=== PATIENT | female | born 1965 | race Caucasian/White ===

== ENCOUNTER 2016-12-30 11:24 | Emergency (ER) | payer OTHER, MEDICAID ==
[~2016-12-30] VITALS: Ht 167.6 cm; Wt 149.7 kg
[2016-12-30] MEDS ORDERED: SODIUM CHLORIDE 0.9% 500 ML IVB ONE (12:17)
[2016-12-30 14:27] LABS: Basophils # (auto) 0.1 uL; Basophils % (auto) 0.9 % (0.0-2.0); Eosinophils # (auto) 0.3 uL; Eosinophils % (auto) 4.9 % (0.0-7.0); Hematocrit 40.2 % (36.0-46.0); Hemoglobin 12.9 g/dL (12.2-16.2); Lymphocytes # (auto) 1.9 uL; Lymphocytes % (auto) 26.6 % (10.0-50.0); Mean Corpuscular Hemoglobin 27.1 pg (28.0-32.0); Mean Corpuscular Hgb Conc. 32.2 g/dL (32.0-36.0); Mean Corpuscular Volume 84.2 fL (80.0-100.0); Mean Platelet Volume 8.9 fL (7.4-10.4); Monocytes # (auto) 0.6 uL; Neutrophils # (auto) 4.1 uL; Neutrophils % (auto) 58.6 % (37.0-80.0); Platelet Count (auto) 283 10^3/uL (140-450); Red Cell Distribution Width 16.1 % (11.6-16.0)
[2016-12-30 14:45] VITALS: BP 135/75
[2016-12-30 14:53] LABS: Albumin 3.5 g/dL (3.4-5.0); Alkaline Phosphatase 113 U/L (45-117); Anion Gap 7 (5-15); Aspartate Aminotransferase 27 U/L (15-37); BUN/Creatinine Ratio 23.3; Bilirubin, Total 0.2 mg/dL (0.2-1.0); Blood Urea Nitrogen 20 mg/dL (7-18); Calcium 8.7 mg/dL (8.5-10.1); Carbon Dioxide 31 mmol/L (21-32); Chloride 105 mmol/L (98-107); GFR African American 89 mL/min; GFR Non-African American 74 mL/min; Glucose 106 mg/dL (74-106); Potassium 5.1 mmol/L (3.5-5.1); Sodium 143 mmol/L (136-145); Total Protein 6.9 g/dL (6.4-8.2)
[2016-12-30 16:13] LABS: Urine Bilirubin Negative (Negative); Urine Blood Negative /uL (Negative); Urine Color Yellow (Yellow); Urine Glucose Normal (Normal); Urine Ketone Negative (Negative); Urine Nitrite Negative (Negative); Urine RBC <1 /hpf (0 - 4); Urine Squamous Epithelial Cell FEW /hpf (<5); Urine Urobilinogen Normal (Negative); Urine pH 5.5 (5.0-8.0)
== END 2016-12-30 18:32 | disposition home or self-care (01) ==
LOC: EDBD 11:24 → ER 11:27
DX: R53.1 Weakness (principal); R41.82 Altered mental status, unspecified; M19.90 Unspecified osteoarthritis, unspecified site; Z79.82 Long term (current) use of aspirin; Z79.899 Other long term (current) drug therapy
CPT/HCPCS: 36415; 70450; 71020; 80053; 80320; 81001; 82962; 84484; 85025; 93005; 94761; 96360; 99285; G0434; J7030

== ENCOUNTER 2016-12-31 12:08 | Emergency (ER) | payer OTHER, MEDICAID ==
[~2016-12-31] VITALS: Ht 167.6 cm; Wt 149.7 kg
[2016-12-31 13:09] LABS: Basophils # (auto) 0 uL; Basophils % (auto) 0.7 % (0.0-2.0); DEFINITIVE VIEW TRANSMISSION; Eosinophils # (auto) 0.3 uL; Eosinophils % (auto) 4.4 % (0.0-7.0); Hematocrit 40.1 % (36.0-46.0); Hemoglobin 12.8 g/dL (12.2-16.2); Lymphocytes % (auto) 32.1 % (10.0-50.0); Mean Corpuscular Hemoglobin 26.9 pg (28.0-32.0); Mean Platelet Volume 8.6 fL (7.4-10.4); Monocytes # (auto) 0.6 uL; Neutrophils # (auto) 3.4 uL; Neutrophils % (auto) 53.8 % (37.0-80.0); Platelet Count (auto) 286 10^3/uL (140-450); Red Cell Distribution Width 15.7 % (11.6-16.0); White Blood Cell 6.2 10^3/uL (4.4-10.8)
[2016-12-31 13:37] LABS: Albumin 3.3 g/dL (3.4-5.0); Anion Gap 8 (5-15); Aspartate Aminotransferase 17 U/L (15-37); BUN/Creatinine Ratio 27.6; Blood Urea Nitrogen 21 mg/dL (7-18); Calcium 8.8 mg/dL (8.5-10.1); Carbon Dioxide 28 mmol/L (21-32); Chloride 107 mmol/L (98-107); GFR African American 103 mL/min; GFR Non-African American 85 mL/min; Glucose 100 mg/dL (74-106); Potassium 4.5 mmol/L (3.5-5.1); Sodium 143 mmol/L (136-145)
[2016-12-31 13:42] LABS: Alkaline Phosphatase 103 U/L (45-117); Bilirubin, Total 0.2 mg/dL (0.2-1.0); Total Protein 6.6 g/dL (6.4-8.2)
[2016-12-31 17:12] LABS: Urine RBC None Seen /hpf (0 - 4)
[2016-12-31 17:20] LABS: Urine Bilirubin Negative (Negative); Urine Blood Negative /uL (Negative); Urine Color Yellow (Yellow); Urine Glucose Normal (Normal); Urine Ketone Negative (Negative); Urine Nitrite Negative (Negative); Urine Squamous Epithelial Cell FEW /hpf (<5); Urine Urobilinogen Normal (Negative)
[2016-12-31 19:28] LABS: B-Type Natriuretic Peptide 115.4 pg/mL (0-100); Temperature: 22.2 C (20.0-25.0)
[2016-12-31] MEDS ORDERED: FUROSEMIDE 20 MG/2 ML VIAL IV ONE (19:45)
[2016-12-31 22:57] VITALS: BP 158/72
== END 2016-12-31 22:58 | disposition home or self-care (01) ==
LOC: ER 12:16
DX: I50.9 Heart failure, unspecified (principal); R07.89 Other chest pain; Z90.89 Acquired absence of other organs; Z90.49 Acquired absence of other specified parts of digestive tract; Z88.6 Allergy status to analgesic agent; Z88.8 Allergy status to other drugs, medicaments and biological substances; Z88.1 Allergy status to other antibiotic agents
CPT/HCPCS: 36415; 71010; 80053; 81001; 83880; 84484; 85025; 93005; 96374; 99285; J1940

== ENCOUNTER 2018-07-06 16:53 | Emergency (ER) | payer OTHER, MEDICAID ==
[~2018-07-06] VITALS: Ht 167.6 cm; Wt 156.5 kg
[2018-07-06 17:00] VITALS: BP 157/80
[2018-07-06 17:52] LABS: Basophils # (auto) 0.1 uL; Basophils % (auto) 1.2 % (0.0-2.0); Eosinophils # (auto) 0.3 uL; Eosinophils % (auto) 4.5 % (0.0-7.0); Hematocrit 41.9 % (36.0-46.0); Lymphocytes % (auto) 25.1 % (10.0-50.0); Mean Corpuscular Hemoglobin 31.1 pg (28.0-32.0); Mean Corpuscular Hgb Conc. 33.3 g/dL (32.0-36.0); Mean Corpuscular Volume 93.4 fL (80.0-100.0); Monocytes # (auto) 0.6 uL; Neutrophils # (auto) 4.8 uL; Neutrophils % (auto) 61.2 % (37.0-80.0); Nucleated Red Blood Cells % 0.2 %; Platelet Count (auto) 187 10^3/uL (140-450); Red Blood Cells 4.49 10^6/uL (4.0-5.20); Red Cell Distribution Width 13.3 % (11.8-14.3); White Blood Cell 7.8 10^3/uL (4.4-10.8)
[2018-07-06 18:15] LABS: Albumin 3.5 g/dL (3.4-5.0); BUN/Creatinine Ratio 23.7; Bilirubin, Total 0.4 mg/dL (0.2-1.0); Calcium 8.7 mg/dL (8.5-10.1); Potassium 4.1 mmol/L (3.5-5.1); Total Protein 6.6 g/dL (6.4-8.2)
== END 2018-07-06 19:34 | disposition left against medical advice (07) ==
LOC: ER 16:58
DX: R06.02 Shortness of breath (principal); I11.0 Hypertensive heart disease with heart failure; I50.9 Heart failure, unspecified; Z53.29 Procedure and treatment not carried out because of patient's decision for other reasons; Z90.49 Acquired absence of other specified parts of digestive tract; Z90.710 Acquired absence of both cervix and uterus
CPT/HCPCS: 36415; 71045; 80053; 83880; 84484; 85025; 93005

== ENCOUNTER 2018-07-27 16:31 | Inpatient (IN) | payer OTHER, MEDICAID ==
[~2018-07-27] VITALS: Ht 167.6 cm; Wt 161.5 kg
[2018-07-27 17:12] LABS: Urine Bacteria NONE SEEN /hpf (None Seen); Urine Blood Negative /uL (Negative); Urine Specific Gravity 1.023 (1.001-1.035); Urine WBC 1 /hpf (0 - 5)
[2018-07-27] MEDS ORDERED: FUROSEMIDE 40 MG/4 ML VIAL IV ONE (17:15)
[2018-07-27 17:39] LABS: Basophils # (auto) 0.1 uL; Basophils % (auto) 1.2 % (0.0-2.0); Eosinophils # (auto) 0.5 uL; Hematocrit 41.3 % (36.0-46.0); Hemoglobin 13.9 g/dL (12.2-16.2); Lymphocytes # (auto) 2.2 uL; Mean Corpuscular Hemoglobin 31.3 pg (28.0-32.0); Mean Corpuscular Hgb Conc. 33.7 g/dL (32.0-36.0); Mean Corpuscular Volume 93.1 fL (80.0-100.0); Monocytes # (auto) 0.7 uL; Monocytes % (auto) 8.8 % (0.0-12.0); Neutrophils # (auto) 3.9 uL; Nucleated Red Blood Cells % 0.1 %; Platelet Count (auto) 196 10^3/uL (140-450); Red Blood Cells 4.44 10^6/uL (4.0-5.20); Red Cell Distribution Width 13.2 % (11.8-14.3); White Blood Cell 7.4 10^3/uL (4.4-10.8)
[2018-07-27 17:52] LABS: Albumin 3.5 g/dL (3.4-5.0); Anion Gap 4 (5-15); Blood Urea Nitrogen 17 mg/dL (7-18); Calcium 9.1 mg/dL (8.5-10.1); Carbon Dioxide 31 mmol/L (21-32); Chloride 105 mmol/L (98-107); Glucose 142 mg/dL (74-106); Potassium 4.1 mmol/L (3.5-5.1); Sodium 140 mmol/L (136-145)
[2018-07-27 17:59] LABS: Alanine Aminotransferase 42 U/L (13-56); Alkaline Phosphatase 98 U/L (45-117); Aspartate Aminotransferase 24 U/L (15-37); BUN/Creatinine Ratio 20.5; Bilirubin, Total 0.3 mg/dL (0.2-1.0); GFR African American 93 mL/min; GFR Non-African American 77 mL/min; Total Protein 6.8 g/dL (6.4-8.2)
[2018-07-27] MEDS ORDERED: DEXTROSE (50%) 50ML SYRG IV PRN (19:15)
[2018-07-27] MEDS ORDERED: ALBUTEROL SULF 2.5 MG/0.5ML(0.5%) NEB SOLN NEB PRN (19:15)
[2018-07-27] MEDS ORDERED: ONDANSETRON HCL 4 MG/2 ML VIAL IV PRN (19:15)
[2018-07-27] MEDS ORDERED: NITROGLYCERIN 0.4 MG SL TAB SL PRN (19:15)
[2018-07-27] MEDS: ACETAMINOPHEN 500 MG TAB PO PRN (19:36)
[2018-07-27 19:39] LABS: INR 0.96 (0.9-1.15); Partial Thromboplastin Time 23.7 sec (23.78-33.04); Prothrombin Time 10.3 sec (9.27-12.13)
[2018-07-27 20:05] LABS: Alcohol, Urine < 3.0 mg/dL (0-5); Amphetamine Screen, Urine NEGATIVE (NEGATIVE); Barbiturate Scree,Urine NEGATIVE (NEGATIVE); Benzodiazephine Screen, Urine NEGATIVE (NEGATIVE); Cannabinoid Screen, Urine POSITIVE (NEGATIVE); Cocaine Screen, Urine NEGATIVE (NEGATIVE); Opiate Scree,Urine NEGATIVE (NEGATIVE); Phencyclidine Screen, Urine NEGATIVE (NEGATIVE)
[2018-07-27 20:38] VITALS: BP 143/106
[2018-07-27] MEDS: SODIUM CHLOR 0.9% PF (SALINE LOCK) 10ML VIAL/SYR IV SCH (22:00)
[2018-07-27] MEDS: CARVEDILOL 3.125 MG TAB PO SCH (22:00)
[2018-07-27] MEDS ORDERED: HYDROcodone-ACET 5/325MG TAB PO ONE (23:10)
[2018-07-27 23:40] VITALS: BP 130/82
[2018-07-28] VITALS (7 sets, daily range): BP systolic 92–142; BP diastolic 55–97
[2018-07-28] MEDS: ACCU-CHEK COMFORT CURVE STRIP VI SCH ×4 (01:06→22:00)
[2018-07-28] MEDS: IPRATROPIUM BROM 0.5 MG/2.5ML INH SOL NEB SCH ×4 (01:21→18:33)
[2018-07-28] MEDS: ALBUTEROL SULF 2.5 MG/0.5ML(0.5%) NEB SOLN NEB SCH ×4 (01:21→18:33)
[2018-07-28] MEDS ORDERED: POTA20TA53 PO (01:55)
[2018-07-28] MEDS ORDERED: PANT40TA2 PO (01:55)
[2018-07-28] MEDS ORDERED: IBUP800T24 PO (01:55)
[2018-07-28] MEDS ORDERED: ALBU2TAB4 IN (01:55)
[2018-07-28] MEDS ORDERED: ATO40T PO (01:55)
[2018-07-28] MEDS ORDERED: BACL10TA PO (01:55)
[2018-07-28] MEDS ORDERED: IPRAAER6 IN (01:55)
[2018-07-28] MEDS ORDERED: PROP60CA34 PO (01:55)
[2018-07-28] MEDS ORDERED: GABA-339 PO (01:55)
[2018-07-28] MEDS ORDERED: PRAM1TAB PO (01:55)
[2018-07-28] MEDS ORDERED: FURO40TA PO (01:55)
[2018-07-28] MEDS: SODIUM CHLOR 0.9% PF (SALINE LOCK) 10ML VIAL/SYR IV SCH ×3 (05:40→23:00)
[2018-07-28 07:06] LABS: Cholesterol 191 mg/dL (< 200); HDL Cholesterol 39 mg/dL (40-59); LDL Cholesterol 128 mg/dL (< 100); Triglycerides 234 mg/dL (< 150)
[2018-07-28] MEDS: ENOXAPARIN SOD 40 MG/0.4 ML SYRINGE SC SCH (08:23)
[2018-07-28] MEDS: NITROGLYCERIN 0.2MG/HR TOPICAL PATCH TD SCH (08:24)
[2018-07-28] MEDS: POTASSIUM CHL 20 Meq TABLET PO SCH (08:25)
[2018-07-28] MEDS: FUROSEMIDE 40 MG/4 ML VIAL IV SCH (08:25)
[2018-07-28] MEDS: PANTOPRAZOLE 40 MG TAB PO SCH (08:26)
[2018-07-28] MEDS: ENALAPRIL MALEATE 2.5 MG TAB PO SCH (08:26)
[2018-07-28] MEDS ORDERED: ENOXAPARIN SOD 40 MG/0.4 ML SYRINGE SC SCH (10:00)
[2018-07-28] MEDS: ACETAMINOPHEN 500 MG TAB PO PRN ×2 (10:48→15:28)
[2018-07-28] MEDS ORDERED: DEXTROSE (50%) 50ML SYRG IV PRN (14:00)
[2018-07-28] MEDS: BACLOFEN 10 MG TAB PO PRN (15:27)
[2018-07-28] MEDS: LORazepam 0.5 MG TAB PO PRN (15:28)
[2018-07-28] MEDS: GABAPENTIN 300 MG CAP PO SCH ×2 (15:30→23:02)
[2018-07-28] MEDS: HYDROcodone-ACET 5/325MG TAB PO PRN (17:19)
[2018-07-28] MEDS: PRAMIPEXOLE DIHYDROCHLORIDE MO 0.25 MG TAB PO SCH ×2 (17:20→23:01)
[2018-07-28] MEDS: InsuLIN REG 1unit/0.01ml Soln (100units/ml) SC SCH ×2 (18:26→22:00)
[2018-07-28] MEDS: CARVEDILOL 3.125 MG TAB PO SCH ×2 (22:00→23:00)
[2018-07-28] MEDS: TEMAZEPAM 15 MG CAP PO PRN (23:01)
[2018-07-29] MEDS: ALBUTEROL SULF 2.5 MG/0.5ML(0.5%) NEB SOLN NEB SCH ×5 (00:27→23:44)
[2018-07-29] MEDS: IPRATROPIUM BROM 0.5 MG/2.5ML INH SOL NEB SCH ×5 (00:27→23:44)
[2018-07-29 05:02] VITALS: BP 109/67
[2018-07-29] MEDS ORDERED: IPRATROPIUM BROM 0.5 MG/2.5ML INH SOL ONE (06:19)
[2018-07-29] MEDS ORDERED: ALBUTEROL SULF 2.5 MG/0.5ML(0.5%) NEB SOLN ONE ×2 (06:19→16:56)
[2018-07-29] MEDS: ACCU-CHEK COMFORT CURVE STRIP VI SCH ×4 (06:29→21:36)
[2018-07-29] MEDS: InsuLIN REG 1unit/0.01ml Soln (100units/ml) SC SCH ×4 (06:29→21:37)
[2018-07-29] MEDS: SODIUM CHLOR 0.9% PF (SALINE LOCK) 10ML VIAL/SYR IV SCH ×3 (07:01→21:36)
[2018-07-29] MEDS: GABAPENTIN 300 MG CAP PO SCH ×3 (07:02→21:36)
[2018-07-29] MEDS: PRAMIPEXOLE DIHYDROCHLORIDE MO 0.25 MG TAB PO SCH ×3 (07:03→21:36)
[2018-07-29 09:00] VITALS: BP 131/66
[2018-07-29] MEDS: ENOXAPARIN SOD 40 MG/0.4 ML SYRINGE SC SCH (09:37)
[2018-07-29] MEDS: PANTOPRAZOLE 40 MG TAB PO SCH (09:37)
[2018-07-29] MEDS: POTASSIUM CHL 20 Meq TABLET PO SCH (09:38)
[2018-07-29] MEDS: FUROSEMIDE 40 MG/4 ML VIAL IV SCH (09:38)
[2018-07-29] MEDS: ENALAPRIL MALEATE 2.5 MG TAB PO SCH (09:38)
[2018-07-29] MEDS: CARVEDILOL 3.125 MG TAB PO SCH ×2 (09:38→21:40)
[2018-07-29] MEDS: NITROGLYCERIN 0.2MG/HR TOPICAL PATCH TD SCH (09:44)
[2018-07-29 13:00] VITALS: BP 119/77
[2018-07-29] MEDS: LACTULOSE 20Gm/30ML SOLN PO PRN (13:46)
[2018-07-29 16:58] VITALS: BP 92/48
[2018-07-29] MEDS: ATORVASTATIN 20 MG TAB PO SCH (21:36)
[2018-07-29 22:00] VITALS: BP 90/63
[2018-07-30] MEDS: ACETAMINOPHEN 500 MG TAB PO PRN (04:01)
[2018-07-30] MEDS: BACLOFEN 10 MG TAB PO PRN (04:01)
[2018-07-30 05:24] VITALS: BP 92/63
[2018-07-30] MEDS: SODIUM CHLOR 0.9% PF (SALINE LOCK) 10ML VIAL/SYR IV SCH ×3 (05:30→23:35)
[2018-07-30] MEDS: GABAPENTIN 300 MG CAP PO SCH ×3 (05:30→23:36)
[2018-07-30] MEDS: PRAMIPEXOLE DIHYDROCHLORIDE MO 0.25 MG TAB PO SCH ×3 (05:31→23:35)
[2018-07-30] MEDS: ALBUTEROL SULF 2.5 MG/0.5ML(0.5%) NEB SOLN NEB SCH ×3 (06:03→19:03)
[2018-07-30] MEDS: IPRATROPIUM BROM 0.5 MG/2.5ML INH SOL NEB SCH ×3 (06:03→19:03)
[2018-07-30] MEDS: ACCU-CHEK COMFORT CURVE STRIP VI SCH ×4 (06:17→23:46)
[2018-07-30] MEDS: InsuLIN REG 1unit/0.01ml Soln (100units/ml) SC SCH ×4 (06:17→23:47)
[2018-07-30] MEDS: HYDROcodone-ACET 5/325MG TAB PO PRN ×2 (07:50→14:00)
[2018-07-30] MEDS: LACTULOSE 20Gm/30ML SOLN PO PRN (07:50)
[2018-07-30] MEDS: MEPERIDINE HCL (50 MG/ML) 1 ML VIAL IV PRN ×5 (08:00→18:00)
[2018-07-30 09:00] VITALS: BP 115/72
[2018-07-30] MEDS ORDERED: MEPERIDINE HCL (50 MG/ML) 1 ML VIAL IV PRN (09:15)
[2018-07-30] MEDS: NITROGLYCERIN 0.2MG/HR TOPICAL PATCH TD SCH (10:00)
[2018-07-30] MEDS: ENOXAPARIN SOD 40 MG/0.4 ML SYRINGE SC SCH (10:14)
[2018-07-30] MEDS: FUROSEMIDE 40 MG/4 ML VIAL IV SCH (10:14)
[2018-07-30] MEDS: PANTOPRAZOLE 40 MG TAB PO SCH (10:14)
[2018-07-30] MEDS: POTASSIUM CHL 20 Meq TABLET PO SCH (10:14)
[2018-07-30] MEDS: ENALAPRIL MALEATE 2.5 MG TAB PO SCH (10:15)
[2018-07-30] MEDS: CARVEDILOL 3.125 MG TAB PO SCH ×2 (10:15→23:37)
[2018-07-30 13:00] VITALS: BP 109/60
[2018-07-30 17:16] VITALS: BP 132/93
[2018-07-30] MEDS ORDERED: IPRATROPIUM BROM 0.5 MG/2.5ML INH SOL ONE (18:48)
[2018-07-30] MEDS: LORazepam 0.5 MG TAB PO PRN (18:48)
[2018-07-30] MEDS ORDERED: ALBUTEROL SULF 2.5 MG/0.5ML(0.5%) NEB SOLN ONE (18:49)
[2018-07-30 20:30] VITALS: BP 122/62
[2018-07-30 22:00] VITALS: BP 124/68
[2018-07-30] MEDS ORDERED: ADCIRCA 20 MG PO SCH (22:00)
[2018-07-30] MEDS: ATORVASTATIN 20 MG TAB PO SCH (23:36)
[2018-07-30] MEDS: TEMAZEPAM 15 MG CAP PO PRN (23:52)
[2018-07-31 05:05] VITALS: BP 115/76
[2018-07-31] MEDS: IPRATROPIUM BROM 0.5 MG/2.5ML INH SOL NEB SCH ×4 (05:44→18:41)
[2018-07-31] MEDS: ALBUTEROL SULF 2.5 MG/0.5ML(0.5%) NEB SOLN NEB SCH ×4 (05:44→18:41)
[2018-07-31] MEDS: PRAMIPEXOLE DIHYDROCHLORIDE MO 0.25 MG TAB PO SCH ×3 (06:00→23:36)
[2018-07-31] MEDS ORDERED: PRAMIPEXOLE DIHYDROCHLORIDE MO 0.25 MG TAB ONE (06:22)
[2018-07-31] MEDS: GABAPENTIN 300 MG CAP PO SCH ×3 (06:29→23:36)
[2018-07-31] MEDS: SODIUM CHLOR 0.9% PF (SALINE LOCK) 10ML VIAL/SYR IV SCH ×3 (06:31→23:35)
[2018-07-31] MEDS: BACLOFEN 10 MG TAB PO PRN (06:32)
[2018-07-31] MEDS: ACETAMINOPHEN 500 MG TAB PO PRN (06:32)
[2018-07-31] MEDS: ACCU-CHEK COMFORT CURVE STRIP VI SCH ×4 (06:43→23:37)
[2018-07-31] MEDS: InsuLIN REG 1unit/0.01ml Soln (100units/ml) SC SCH ×4 (06:47→23:38)
[2018-07-31] MEDS: MEPERIDINE HCL (50 MG/ML) 1 ML VIAL IV PRN ×5 (07:35→18:36)
[2018-07-31 07:37] VITALS: BP 103/64
[2018-07-31] MEDS: FUROSEMIDE 40 MG/4 ML VIAL IV SCH (10:00)
[2018-07-31 12:02] VITALS: BP 129/76
[2018-07-31] MEDS ORDERED: NALOXONE HCL 0.4 MG/ML VIAL IV ONE (12:45)
[2018-07-31] MEDS ORDERED: fentaNYL CITRATE 100 MCG/2 ML VL IV ONE (12:45)
[2018-07-31] MEDS ORDERED: FLUMAZENIL 0.1 MG/ML INJ 10ML MDV IV ONE ×2 (12:45→13:13)
[2018-07-31] MEDS ORDERED: MIDAZOLAM HCL 1MG/1ML-2 ML VIAL IV ONE (12:45)
[2018-07-31] MEDS ORDERED: MIDAZOLAM HCL 1MG/1ML-2 ML VIAL ONE (13:06)
[2018-07-31] MEDS: ENOXAPARIN SOD 40 MG/0.4 ML SYRINGE SC SCH (15:37)
[2018-07-31] MEDS: ENALAPRIL MALEATE 2.5 MG TAB PO SCH (15:38)
[2018-07-31] MEDS: CARVEDILOL 3.125 MG TAB PO SCH ×2 (15:39→23:34)
[2018-07-31] MEDS: PANTOPRAZOLE 40 MG TAB PO SCH (15:39)
[2018-07-31] MEDS: POTASSIUM CHL 20 Meq TABLET PO SCH (15:40)
[2018-07-31] MEDS ORDERED: HYDROcodone-ACET 10/325MG TAB PO PRN (16:15)
[2018-07-31] MEDS ORDERED: HYDROcodone-ACET 10/325MG TAB PO ONE (16:15)
[2018-07-31 16:49] VITALS: BP 115/69
[2018-07-31 22:00] VITALS: BP 131/70
[2018-07-31] MEDS: ATORVASTATIN 20 MG TAB PO SCH (23:35)
[2018-08-01] MEDS: IPRATROPIUM BROM 0.5 MG/2.5ML INH SOL NEB SCH ×3 (01:16→12:00)
[2018-08-01] MEDS: ALBUTEROL SULF 2.5 MG/0.5ML(0.5%) NEB SOLN NEB SCH ×3 (01:16→12:01)
[2018-08-01] MEDS: BACLOFEN 10 MG TAB PO PRN (04:37)
[2018-08-01] MEDS: ACETAMINOPHEN 500 MG TAB PO PRN (04:38)
[2018-08-01 04:53] VITALS: BP 103/69
[2018-08-01] MEDS: PRAMIPEXOLE DIHYDROCHLORIDE MO 0.25 MG TAB PO SCH ×2 (06:00→14:00)
[2018-08-01] MEDS: SODIUM CHLOR 0.9% PF (SALINE LOCK) 10ML VIAL/SYR IV SCH ×2 (06:37→14:00)
[2018-08-01] MEDS: GABAPENTIN 300 MG CAP PO SCH ×2 (06:53→14:00)
[2018-08-01] MEDS: ACCU-CHEK COMFORT CURVE STRIP VI SCH ×2 (06:57→11:30)
[2018-08-01] MEDS: InsuLIN REG 1unit/0.01ml Soln (100units/ml) SC SCH ×2 (07:00→11:30)
[2018-08-01] MEDS: MEPERIDINE HCL (50 MG/ML) 1 ML VIAL IV PRN ×6 (07:18→16:42)
[2018-08-01] MEDS: LACTULOSE 20Gm/30ML SOLN PO PRN (07:25)
[2018-08-01 09:00] VITALS: BP 107/47
[2018-08-01] MEDS: FUROSEMIDE 40 MG/4 ML VIAL IV SCH (09:30)
[2018-08-01] MEDS: ENOXAPARIN SOD 40 MG/0.4 ML SYRINGE SC SCH (09:30)
[2018-08-01] MEDS: PANTOPRAZOLE 40 MG TAB PO SCH (09:31)
[2018-08-01] MEDS: POTASSIUM CHL 20 Meq TABLET PO SCH (09:31)
[2018-08-01] MEDS: CARVEDILOL 3.125 MG TAB PO SCH (09:32)
[2018-08-01 12:48] VITALS: BP 107/47
[2018-08-01 13:00] VITALS: BP 110/56
== END 2018-08-01 16:03 | disposition home or self-care (01) | DRG 291 ==
LOC: ER 16:33 → TELE 16:34 → TELE-EAST 23:24
PROVIDERS: ADMIT Internal Medicine; ATTEND Family Medicine
PROC: B246ZZ4 Ultrasonography of Right and Left Heart, Transesophageal (ICD-10-PCS; principal; 2018-07-31)
DX: I11.0 Hypertensive heart disease with heart failure (principal); J96.20 Acute and chronic respiratory failure, unspecified whether with hypoxia or hypercapnia; J44.1 Chronic obstructive pulmonary disease with (acute) exacerbation; Z68.43 Body mass index [BMI] 50.0-59.9, adult; I50.810 Right heart failure, unspecified; I27.29 Other secondary pulmonary hypertension; E11.65 Type 2 diabetes mellitus with hyperglycemia; I50.43 Acute on chronic combined systolic (congestive) and diastolic (congestive) heart failure; Z88.6 Allergy status to analgesic agent; Z88.5 Allergy status to narcotic agent; Z88.8 Allergy status to other drugs, medicaments and biological substances; E66.01 Morbid (severe) obesity due to excess calories; E78.00 Pure hypercholesterolemia, unspecified; F32.9 Major depressive disorder, single episode, unspecified; G25.81 Restless legs syndrome; M79.7 Fibromyalgia; Z86.73 Personal history of transient ischemic attack (TIA), and cerebral infarction without residual deficits; Z90.710 Acquired absence of both cervix and uterus; Z98.84 Bariatric surgery status; Z99.81 Dependence on supplemental oxygen; E11.42 Type 2 diabetes mellitus with diabetic polyneuropathy; G43.909 Migraine, unspecified, not intractable, without status migrainosus
CPT/HCPCS: 36415; 71045; 80053; 80061; 80307; 81001; 82550; 82962; 83036; 83735; 83880; 84443; 84484; 85025; 85379; 85610; 85730; 86850; 86900; 86901; 87804; 93005; 93306; 93312; 94640; 94761; 96374; G0378; J1815; J2250; J2405

== ENCOUNTER 2018-08-16 20:37 | Emergency (ER) | payer OTHER, MEDICAID ==
[~2018-08-16] VITALS: Ht 167.6 cm; Wt 156.5 kg
[~2018-08-16 20:37] MED LIST: ALBU2TAB4 IN; ATO40T PO; BACL10TA PO; FURO40TA PO; GABA-339 PO; IBUP800T24 PO; IPRAAER6 IN; PANT40TA2 PO; POTA20TA53 PO; PRAM1TAB PO; PROP60CA34 PO
[2018-08-16 22:14] LABS: Basophils # (auto) 0.1 uL; Basophils % (auto) 0.7 % (0.0-2.0); Eosinophils # (auto) 0.3 uL; Hematocrit 41.2 % (36.0-46.0); Hemoglobin 13.6 g/dL (12.2-16.2); Lymphocytes # (auto) 1.9 uL; Lymphocytes % (auto) 23.4 % (10.0-50.0); Mean Corpuscular Hgb Conc. 32.9 g/dL (32.0-36.0); Mean Corpuscular Volume 94.1 fL (80.0-100.0); Monocytes # (auto) 0.9 uL; Monocytes % (auto) 11.1 % (0.0-12.0); Neutrophils # (auto) 4.9 uL; Neutrophils % (auto) 60.8 % (37.0-80.0); Platelet Count (auto) 197 10^3/uL (140-450); Red Blood Cells 4.38 10^6/uL (4.0-5.20); Red Cell Distribution Width 13.4 % (11.8-14.3)
[2018-08-16 22:33] LABS: Albumin 3.6 g/dL (3.4-5.0); BUN/Creatinine Ratio 30.8; Calcium 8.5 mg/dL (8.5-10.1); Potassium 4.1 mmol/L (3.5-5.1)
[2018-08-16 22:36] LABS: Bilirubin, Total 0.4 mg/dL (0.2-1.0); Total Protein 6.5 g/dL (6.4-8.2)
[2018-08-16 23:29] VITALS: BP 124/77
[2018-08-16 23:57] LABS: Magnesium 2.3 mg/dL (1.6-2.6)
[2018-08-17 00:14] LABS: INR 0.99 (0.9-1.15); Partial Thromboplastin Time 24.2 sec (23.78-33.04); Prothrombin Time 10.6 sec (9.27-12.13)
== END 2018-08-17 01:02 | disposition home or self-care (01) ==
LOC: EDBD 20:37 → ER 20:39
DX: E86.0 Dehydration (principal); I95.9 Hypotension, unspecified; I11.0 Hypertensive heart disease with heart failure; I50.9 Heart failure, unspecified; J44.9 Chronic obstructive pulmonary disease, unspecified; Z86.73 Personal history of transient ischemic attack (TIA), and cerebral infarction without residual deficits; Z88.6 Allergy status to analgesic agent; Z88.8 Allergy status to other drugs, medicaments and biological substances; Z90.49 Acquired absence of other specified parts of digestive tract; Z90.710 Acquired absence of both cervix and uterus
CPT/HCPCS: 36415; 71045; 80053; 83735; 83880; 84443; 84484; 85025; 85379; 85610; 85730; 93005

== ENCOUNTER 2022-05-23 14:01 | Emergency (ER) | payer OTHER, MEDICAID ==
[~2022-05-23] VITALS: Ht 157.5 cm; Wt 139.0 kg
[~2022-05-23 14:01] MED LIST changes: +FURO1TAB31 PO; -FURO40TA PO; -IBUP800T24 PO; +IBUP800T27 PO; +POTA-220 PO; -POTA20TA53 PO; -PRAM1TAB PO; +PRAM1TAB2 PO
[2022-05-23 17:02] VITALS: BP 134/86
[2022-05-23 18:24] LABS: Albumin 3.4 g/dL (3.4-5.0); BUN/Creatinine Ratio 24.3; Calcium 8.6 mg/dL (8.5-10.1); Potassium 4.3 mmol/L (3.5-5.1)
[2022-05-23 18:30] LABS: Bilirubin, Total 0.4 mg/dL (0.2-1.0); Total Protein 6.6 g/dL (6.4-8.2)
[2022-05-23 18:33] LABS: Basophils # (auto) 0.1 10 ^3/uL (0-0.2); Basophils % (auto) 0.8 % (0.0-2.0); Eosinophils # (auto) 0.4 10 ^3/uL (0-0.8); Eosinophils % (auto) 4.8 % (0.0-7.0); Hematocrit 42.3 % (36.0-46.0); Hemoglobin 13.6 g/dL (12.2-16.2); Lymphocytes # (auto) 1.9 10 ^3/uL (0.4-5.4); Lymphocytes % (auto) 25.8 % (10.0-50.0); Mean Corpuscular Hemoglobin 28.8 pg (28.0-32.0); Mean Corpuscular Hgb Conc. 32.3 g/dL (32.0-36.0); Mean Corpuscular Volume 89.1 fL (80.0-100.0); Monocytes # (auto) 0.7 10 ^3/uL (0-1.3); Neutrophils # (auto) 4.5 10 ^3/uL (1.6-8.6); Neutrophils % (auto) 59.6 % (37.0-80.0); Red Blood Cells 4.74 10^6/uL (4.0-5.20); Red Cell Distribution Width 14.4 % (11.8-14.3); White Blood Cell 7.5 10^3/uL (4.4-10.8)
[2022-05-23] MEDS ORDERED: ALBUAER3 IN (19:48)
[2022-05-23] MEDS ORDERED: PROM1SOL4 PO (19:48)
== END 2022-05-23 19:53 | disposition home or self-care (01) ==
LOC: ER 14:01
DX: U07.1 COVID-19 (principal); I10 Essential (primary) hypertension; I50.9 Heart failure, unspecified; J44.9 Chronic obstructive pulmonary disease, unspecified; Z90.49 Acquired absence of other specified parts of digestive tract; Z90.710 Acquired absence of both cervix and uterus; Z86.73 Personal history of transient ischemic attack (TIA), and cerebral infarction without residual deficits
CPT/HCPCS: 36415; 71046; 80053; 83880; 84484; 85025; 93005

== ENCOUNTER 2022-12-01 13:29 | Emergency (ER) | payer OTHER, MEDICAID ==
[~2022-12-01] VITALS: Ht 167.6 cm; Wt 152.0 kg
[~2022-12-01 13:29] MED LIST changes: +ALBUAER3 IN; +PROM1SOL4 PO
[2022-12-01 13:32] VITALS: BP 150/74
[2022-12-01 14:30] LABS: Urine Bacteria NONE SEEN /hpf (None Seen); Urine Blood Negative /uL (Negative); Urine Mucus FEW (None Seen); Urine Specific Gravity 1.033 (1.001-1.035); Urine WBC 1 /hpf (0 - 5)
[2022-12-01 16:52] LABS: Basophils # (auto) 0.1 10 ^3/uL (0-0.2); Eosinophils # (auto) 0.5 10 ^3/uL (0-0.8); Eosinophils % (auto) 5.9 % (0.0-7.0); Hematocrit 42.6 % (36.0-46.0); Hemoglobin 14.2 g/dL (12.2-16.2); Lymphocytes # (auto) 2.3 10 ^3/uL (0.4-5.4); Lymphocytes % (auto) 26.4 % (10.0-50.0); Mean Corpuscular Hemoglobin 29.1 pg (28.0-32.0); Mean Corpuscular Hgb Conc. 33.4 g/dL (32.0-36.0); Monocytes # (auto) 0.7 10 ^3/uL (0-1.3); Monocytes % (auto) 8.6 % (0.0-12.0); Neutrophils % (auto) 58.1 % (37.0-80.0); Red Blood Cells 4.89 10^6/uL (4.0-5.20); White Blood Cell 8.6 10^3/uL (4.4-10.8)
[2022-12-01 17:01] LABS: Albumin 3.6 g/dL (3.4-5.0); BUN/Creatinine Ratio 31.9; Calcium 8.7 mg/dL (8.5-10.1); Potassium 4.6 mmol/L (3.5-5.1)
[2022-12-01 17:04] LABS: Bilirubin, Total 0.4 mg/dL (0.2-1.0); Total Protein 6.5 g/dL (6.4-8.2)
[2022-12-01] MEDS ORDERED: ALBU108A5 IN (20:25)
[2022-12-01] MEDS ORDERED: AZITTAB PO (20:25)
[2022-12-01] MEDS ORDERED: PRED20TA2 PO (20:25)
[2022-12-01] MEDS ORDERED: methylPREDNISolone SOD SUCC 125 MG/2 ML VL IM ONE (20:30)
[2022-12-01] MEDS ORDERED: ALBUTEROL MEDNEB 2.5 mg/3ml NEB NEB ONE (20:30)
== END 2022-12-01 21:21 | disposition left against medical advice (07) ==
LOC: ER 13:29
DX: J44.1 Chronic obstructive pulmonary disease with (acute) exacerbation (principal); I11.0 Hypertensive heart disease with heart failure; I50.9 Heart failure, unspecified; E11.9 Type 2 diabetes mellitus without complications; Z90.49 Acquired absence of other specified parts of digestive tract; Z90.710 Acquired absence of both cervix and uterus; Z86.73 Personal history of transient ischemic attack (TIA), and cerebral infarction without residual deficits
CPT/HCPCS: 36415; 71045; 80053; 81001; 83880; 84484; 85025; 93005; 94640

== ENCOUNTER 2023-05-25 17:55 | Emergency (ER) | payer OTHER, MEDICAID ==
[~2023-05-25] VITALS: Ht 167.6 cm; Wt 153.6 kg
[~2023-05-25 17:55] MED LIST changes: +ALBU108A5 IN; +ALBU2TAB11 IN; -ALBU2TAB4 IN; +AZITTAB PO; +IBUP-1456 PO; -IBUP800T27 PO; +PRED20TA2 PO
[2023-05-25 18:36] LABS: Basophils # (auto) 0.1 10 ^3/uL (0-0.2); Basophils % (auto) 1.2 % (0.0-2.0); Eosinophils # (auto) 0.4 10 ^3/uL (0-0.8); Eosinophils % (auto) 3.7 % (0.0-7.0); Hematocrit 41.7 % (36.0-46.0); Hemoglobin 13.9 g/dL (12.2-16.2); Lymphocytes # (auto) 2.6 10 ^3/uL (0.4-5.4); Lymphocytes % (auto) 26.5 % (10.0-50.0); Mean Corpuscular Hemoglobin 29.3 pg (28.0-32.0); Mean Corpuscular Hgb Conc. 33.5 g/dL (32.0-36.0); Mean Corpuscular Volume 87.7 fL (80.0-100.0); Monocytes # (auto) 0.9 10 ^3/uL (0-1.3); Monocytes % (auto) 9.4 % (0.0-12.0); Neutrophils # (auto) 5.9 10 ^3/uL (1.6-8.6); Neutrophils % (auto) 59.2 % (37.0-80.0); Nucleated Red Blood Cells % 0.3 %; Red Blood Cells 4.75 10^6/uL (4.0-5.20); White Blood Cell 9.9 10^3/uL (4.4-10.8)
[2023-05-25 19:06] LABS: Albumin 3.6 g/dL (3.4-5.0); BUN/Creatinine Ratio 18.2 (10.0-20.0); Calcium 9.1 mg/dL (8.5-10.1); Potassium 3.4 mmol/L (3.5-5.1)
[2023-05-25 19:09] LABS: Bilirubin, Total 0.3 mg/dL (0.2-1.0); Total Protein 6.6 g/dL (6.4-8.2)
[2023-05-25 22:00] VITALS: O2SAT 96
[2023-05-25] MEDS ORDERED: ALBUTEROL SULF 2.5 MG/0.5ML(0.5%) NEB SOLN NEB ONE (22:00)
[2023-05-25] MEDS ORDERED: cefTRIAXone SOD 1,000 MG VL IM ONE (22:00)
[2023-05-25] MEDS ORDERED: IPRATROPIUM BROM 0.5 MG/2.5ML INH SOL NEB ONE (22:00)
[2023-05-25] MEDS ORDERED: AZITTAB PO (22:25)
[2023-05-25] MEDS ORDERED: LIDOCAINE 2%HCL (LOCAL ANESTH.) INJ 20ML MDV ONE (22:32)
[2023-05-25 22:48] VITALS: BP 120/86; PULSE 72; RESP 18; TEMP 98.3; O2SAT 95
== END 2023-05-25 22:50 | disposition home or self-care (01) ==
LOC: ER 17:55
DX: J44.1 Chronic obstructive pulmonary disease with (acute) exacerbation (principal); J18.9 Pneumonia, unspecified organism; J44.9 Chronic obstructive pulmonary disease, unspecified; F32.9 Major depressive disorder, single episode, unspecified; I11.0 Hypertensive heart disease with heart failure; I50.9 Heart failure, unspecified; E11.9 Type 2 diabetes mellitus without complications; Z86.73 Personal history of transient ischemic attack (TIA), and cerebral infarction without residual deficits; Z90.710 Acquired absence of both cervix and uterus; Z90.89 Acquired absence of other organs; Z90.49 Acquired absence of other specified parts of digestive tract
CPT/HCPCS: 36415; 71046; 80053; 82962; 83880; 84484; 85025; 93005; 94640; 96372; 99285; J0696; J7644

== ENCOUNTER 2024-03-02 15:21 | Emergency (ER) | payer BC, MEDICAID ==
[~2024-03-02] VITALS: Ht 167.6 cm; Wt 151.0 kg
[~2024-03-02 15:21] MED LIST changes: -ATO40T PO; +ATOR-507 PO
[2024-03-02] MEDS: DICYCLOMINE HCL (10MG/ML) 2 ML AMPULE IM ONE (16:08)
[2024-03-02] MEDS: ONDANSETRON HCL 4 MG/2 ML VIAL IM ONE (16:08)
[2024-03-02 16:48] LABS: Basophils # (auto) 0.1 10 ^3/uL (0-0.2); Eosinophils # (auto) 0.4 10 ^3/uL (0-0.8); Eosinophils % (auto) 5.4 % (0.0-7.0); Hematocrit 40.2 % (36.0-46.0); Hemoglobin 12.8 g/dL (12.2-16.2); Lymphocytes # (auto) 1.7 10 ^3/uL (0.4-5.4); Lymphocytes % (auto) 21.2 % (10.0-50.0); Mean Corpuscular Hgb Conc. 31.8 g/dL (32.0-36.0); Mean Corpuscular Volume 81.7 fL (80.0-100.0); Monocytes # (auto) 0.7 10 ^3/uL (0-1.3); Monocytes % (auto) 8.2 % (0.0-12.0); Neutrophils # (auto) 5.2 10 ^3/uL (1.6-8.6); Neutrophils % (auto) 64.2 % (37.0-80.0); Nucleated Red Blood Cells % 0.1 %; Red Blood Cells 4.92 10^6/uL (4.0-5.20); Red Cell Distribution Width 15.2 % (11.8-14.3)
[2024-03-02 17:06] LABS: Alanine Aminotransferase 27 U/L (7-40); Alkaline Phosphatase 119 U/L (46-116); Anion Gap 6 (5-15); Aspartate Aminotransferase 19 U/L (13-40); BUN/Creatinine Ratio 24.1 (10.0-20.0); Bilirubin, Total 0.5 mg/dL (0.2-1.0); Blood Urea Nitrogen 21 mg/dL (9-23); Calcium 9.7 mg/dL (8.7-10.4); Carbon Dioxide 28 mmol/L (20-30); Chloride 105 mmol/L (98-107); Glucose 144 mg/dL (74-106); Lipase 49 U/L (12-53); Potassium 3.6 mmol/L (3.5-5.1); Sodium 139 mmol/L (136-145); Total Protein 5.9 g/dL (5.7-8.2)
[2024-03-02 17:21] VITALS: BP 120/69; PULSE 72; RESP 18; TEMP 98.6; O2SAT 95
[2024-03-02 18:45] LABS: Urine Bacteria FEW /hpf (None Seen); Urine Blood Negative /uL (Negative); Urine Clarity Turbid (Clear); Urine Color Yellow (Yellow); Urine Mucus FEW (None Seen); Urine Protein, UAD TRACE (Negative); Urine Specific Gravity 1.026 (1.001-1.035); Urine Urobilinogen Normal (Negative); Urine WBC 2 /hpf (0 - 5)
[2024-03-02] MEDS ORDERED: ZOFR4T PO (19:48)
[2024-03-02] MEDS ORDERED: ACET500T58 PO (19:48)
[2024-03-02] MEDS ORDERED: DICY10CA PO (19:48)
== END 2024-03-02 20:20 | disposition home or self-care (01) ==
LOC: ER 15:21
DX: R07.89 Other chest pain (principal); I11.0 Hypertensive heart disease with heart failure; I50.9 Heart failure, unspecified; R06.02 Shortness of breath; J44.9 Chronic obstructive pulmonary disease, unspecified; E11.9 Type 2 diabetes mellitus without complications; Z86.73 Personal history of transient ischemic attack (TIA), and cerebral infarction without residual deficits; Z90.49 Acquired absence of other specified parts of digestive tract; Z90.710 Acquired absence of both cervix and uterus
CPT/HCPCS: 36415; 80053; 81001; 83605; 83690; 84484; 85025; 96372; 99284; J0500; J2405